=== PATIENT | male | born 1950 | race Caucasian/White ===

== ENCOUNTER → 2017-12-07 | Day surgery (SDC) | payer OTHER ==
[~2017-12-07] VITALS: Ht 180.3 cm; Wt 95.1 kg
[~2017-12-07] MED LIST: *morphine SULFATE 4 MG/ML PERIprocedure ONLY ONE; ASPI-183 PO; CARV12.52 PO; CEPH-459 PO; CHLORHEXIDINE GLUCONATE 2 % 1 PACK (2 CLOTHS) TOPICAL PRN; DEXAMETHASONE SOD PHOS 4 MG/ML VIAL IV ONE; DO NOT ADM ANY ANTICOAGULANT DRUGS PRN; FLEC1TAB8 PO; HYDR25TA5 PO; KETOROLAC TROMETHAMINE 30 MG/ML (IVP) VIAL IV PUSH ONE; LACTATED RINGER'S 1000 ML INJ 1,000 ML IV ONE; LACTATED RINGER'S 1000 ML IV PRN; LIDOCAINE HCL 1% PF 5 ML SYRINGE OTHER ONE; METOPROLOL TARTRATE 25 MG TAB PO PRN; MIDAZOLAM HCL 2 MG/2 ML VIAL ONE; ONDANSETRON HCL 4 MG/2 ML VIAL IV ONE; ONDANSETRON HCL 4 MG/2 ML VIAL IV PUSH PRN; PERC5TAB12 PO; PHENYLEPH/NS 1000 MCG/10 ML SYR IV ONE; POVIDONE IODINE 5% (ANTISEPSIS KIT) 4 APPLICATIONS EACH NARE PRN; PROPOFOL 200 MG/20 ML AMP IV ONE; SODIUM CHLORID 0.9% 500 ML IV PRN; ceFAZolin 2 GM PREMIX 50 ML IV SCH; ePHEDrine/NS 25 MG/5 ML SYRINGE IV ONE; oxyCODONE/ACETAMINOPHEN 5 MG/325 MG TAB PO PRN
[2017-12-07 07:13] LABS: AUTOMATED NEUTROPHIL # 4.5 TH/MM3 (1.8-7.7); BASOPHIL # 0.1 TH/MM3 (0-0.2); BASOPHIL % 0.9 % (0.0-2.0); EOSINOPHIL # 0.1 TH/MM3 (0-0.4); EOSINOPHIL % 1.8 % (0.0-4.0); HEMATOCRIT 38.6 % (39.0-51.0); HEMOGLOBIN 13.5 GM/DL (13.0-17.0); LYMPH % 34.4 % (9.0-44.0); LYMPHOCYTE # 2.7 TH/MM3 (1.0-4.8); MEAN CELL VOLUME 85.4 FL (80.0-100.0); MEAN CORPUSCULAR HEMOGLOBIN 29.8 PG (27.0-34.0); MEAN CORPUSCULAR HGB CONC 34.9 % (32.0-36.0); MEAN PLATELET VOLUME 8.7 FL (7.0-11.0); MONO % 5.8 % (0.0-8.0); MONOCYTE # 0.5 TH/MM3 (0-0.9); NEUT % 57.1 % (16.0-70.0); PLATELET COUNT 170 TH/MM3 (150-450); RED BLOOD COUNT 4.52 MIL/MM3 (4.50-5.90); RED CELL DISTRIBUTION WIDTH 13.3 % (11.6-17.2); WHITE BLOOD COUNT 7.8 TH/MM3 (4.0-11.0)
--- NOTE | 2017-12-07 09:11 | PD.OP ---
Operative Report Date of Surgery: Dec 07, 2017 Preoperative Diagnosis: (1) Epididymal mass Postoperative Diagnosis: (1) Epididymal mass Procedure: Right epididymectomy Anesthesia: General Surgeon: Fredo Ward Physical Aerodynamicist(s): None Operation and Findings: Indication for procedure: Case of a pleasant 67-year-old gentleman with a right epididymal mass measuring approximately 2 cm that has been present since May 2017. Patient presents today to undergo a right epididymectomy. Operative procedure in detail: Patient was brought to the operating suite and placed supine on the OR table. He was then placed under general anesthesia. He was then prepped and draped in normal sterile fashion. After an appropriate timeout was undertaken I proceeded with making a transverse right scrotal skin incision with the #15 blade. The incision length was approximately 3 cm and extended down to expose the underlying testicle. The right testicle and epididymis was then delivered to the wound and the right epididymis was sharply dissected off of the testicle and sent off to pathology. The testicle was placed back in correct anatomic position within the right hemiscrotum. The scrotal wound was then closed in 2 layers utilizing 3-0 chromic for the deep layer and 2-0 chromic for the superficial layer. A sterile dressing was then placed consisting of fluff gauze and held in place with a scrotal supporter. The patient tolerated the procedure without complications and was transferred to the PACU in satisfactory condition. Fredo Ward MD Dec 07, 2017 09:11
[2017-12-07 10:31] VITALS: BP 143/79; PULSE 67; RESP 18; O2SAT 98
--- NOTE | 2017-12-07 19:23 | EKG ---
Date Performed: 12/07/2017 Time Performed: 06:44:30 PTAGE: 67 years EKG: Sinus rhythm WITH FIRST DEGREE AV BLOCK ABNORMAL ECG NO PREVIOUS TRACING DOCTOR: Edyta Cintron Interpretating Date/Time 12/07/2017 19:22:39
== END | disposition home or self-care (01) ==
LOC: HSDC 05:46
PROVIDERS: ATTEND Urology
DX: N45.1 Epididymitis (principal); I10 Essential (primary) hypertension; I48.91 Unspecified atrial fibrillation; J44.9 Chronic obstructive pulmonary disease, unspecified; K21.9 Gastro-esophageal reflux disease without esophagitis; F17.210 Nicotine dependence, cigarettes, uncomplicated; Z01.810 Encounter for preprocedural cardiovascular examination; Z01.818 Encounter for other preprocedural examination
CPT/HCPCS: 00920; 54860; 85025; 88305; 93005; J0690; J1100; J1885; J2250; J2270; J2370; J2405; J3010; J7120